=== PATIENT | male | born 1985 | race Caucasian/White ===

== ENCOUNTER 2019-06-30 07:30 | Inpatient (IN) ==
[2019-06-30] MEDS ORDERED: Acetaminophen IV 1,000 MG/100 ML INFUS..BTL IVPB ONE (07:57)
[2019-06-30] MEDS ORDERED: Famotidine 20 MG/2 ML VIAL IVP ONE (07:57)
[2019-06-30] MEDS ORDERED: Gabapentin 300 MG CAPSULE PO ONE (07:57)
[2019-06-30] MEDS ORDERED: Dexamethasone 4 MG/ML VIAL ONE (08:06)
[2019-06-30] MEDS ORDERED: *HR* Succinylcholine 200 MG/10 ML VIAL IVP ONE ×2 (08:06→09:11)
[2019-06-30] MEDS ORDERED: Lidocaine -MPF 2% 2 ML VIAL ONE (08:06)
[2019-06-30] MEDS ORDERED: Ondansetron 4 MG/2 ML VIAL ONE (08:06)
[2019-06-30] MEDS ORDERED: Lidocaine HCL 4 ML Topical Solution (Laryng-O-Jet Kit Sterile Pak) TP ONE (08:06)
[2019-06-30] MEDS ORDERED: *HR* Midazolam HCl 2 MG/2 ML VIAL ONE (08:08)
[2019-06-30] MEDS ORDERED: *HR* FentaNYL (PF) 100 MCG/2 ML VIAL ONE ×3 (08:08→11:13)
[2019-06-30] MEDS ORDERED: *HR* Propofol 200 MG/20 ML VIAL IVP ONE (08:09)
[2019-06-30] MEDS ORDERED: Clindamycin 900 MG/50 ML 900 MG/50 ML IV.SOLN IVPB ONE (08:27)
[2019-06-30] MEDS ORDERED: Albuterol 2.5 MG/3 ML NEBULIZER IH PRN ×2 (08:27→11:29)
[2019-06-30] MEDS ORDERED: Ringers Solution, Lactated 1,000 ML IVC SCH (08:30)
[2019-06-30] MEDS ORDERED: Lidocaine Jelly 6ml 1 APPL/6 ML JEL.PF.APP ONE (09:07)
[2019-06-30] MEDS ORDERED: Ketorolac 30 MG/ML VIAL ONE (09:07)
[2019-06-30] MEDS ORDERED: *HR* OxyCODONE Immed Rel 5 MG TABLET PO PRN (11:29)
[2019-06-30] MEDS ORDERED: Ondansetron 4 MG/2 ML VIAL IVP ONE (11:29)
[2019-06-30] MEDS ORDERED: *HR* Promethazine 25 MG/ML VIAL IVP PRN (11:29)
[2019-06-30] MEDS: *HR* HYDROmorphone 2 MG/ML SYRINGE IVP PRN ×4 (11:35→11:50)
[2019-06-30] MEDS ORDERED: Naloxone 0.4 MG/ML INJ IVP PRN (12:52)
[2019-06-30] MEDS: Morphine PCA 30 MG/ 30 ML 30 ML PCA.VIAL IVC SCH (14:23)
[2019-06-30] MEDS: 0.9 % Sodium Chloride 1,000 ML IVC SCH (14:33)
[2019-06-30] MEDS: Ketorolac 15 MG/ML VIAL IVP SCH ×3 (14:35→23:55)
[2019-06-30] MEDS: *HR* Heparin 5,000 UNIT/ML VIAL SQ SCH ×2 (14:35→21:53)
[2019-06-30] MEDS: Ondansetron 4 MG/2 ML VIAL IVP PRN ×2 (15:15→21:57)
[2019-06-30] MEDS: Ipratropium/Albuterol Neb 3 ML IH SCH ×4 (16:17→23:07)
[2019-07-01] MEDS: Ipratropium/Albuterol Neb 3 ML IH SCH ×6 (03:18→23:48)
[2019-07-01 04:44] LABS: Hematocrit 35.5 % (37.5-50.1); Hemoglobin 10.8 g/dL (12.9-16.9); Mean Corpuscular HGB Conc 30.4 g/dL (31.6-35.5); Mean Corpuscular Hemoglobin 24.7 pg (28.0-33.3); Mean Corpuscular Volume 81.1 fL (83.0-100.0); Mean Platelet Volume 9.5 fL (9.4-12.4); Platelet Count 293 K/mcL (140-400); Red Blood Count 4.38 M/mcL (4.19-5.50); Red Cell Distribution Width 26.5 % (11.5-14.5)
[2019-07-01 04:51] LABS: White Blood Count 11.4 K/mcL (4.3-11.1)
[2019-07-01 05:00] LABS: % Iron Saturation 15 % (20-55); BUN/Creatinine Ratio 12 (6-26); Blood Urea Nitrogen 9 mg/dL (6-20); Calcium 8.5 mg/dL (8.6-10.3); Carbon Dioxide 25 mEq/L (23-29); Chloride 105 mEq/L (98-107); Glucose 123 mg/dL (70-105); Iron 50 mcg/dL (65-175); Magnesium 1.7 mg/dL (1.6-2.6); Osmolality,Calculated 284 (280-300); Potassium 3.1 mEq/L (3.5-5.1); Sodium 137 mEq/L (136-145); Transferrin 235 mg/dL (203-362); eGFR For African Americans > 60 (> 60); eGFR For Non-African Americans > 60 (> 60)
[2019-07-01] MEDS: 0.9 % Sodium Chloride 1,000 ML IVC SCH ×3 (05:19→21:51)
[2019-07-01] MEDS: *HR* Heparin 5,000 UNIT/ML VIAL SQ SCH ×3 (05:20→22:47)
[2019-07-01] MEDS: Ketorolac 15 MG/ML VIAL IVP SCH ×4 (05:20→22:47)
[2019-07-01] MEDS: Pantoprazole 40 MG VIAL IVP SCH (08:25)
[2019-07-01] MEDS: Morphine PCA 30 MG/ 30 ML 30 ML PCA.VIAL IVC SCH ×2 (09:08→21:19)
[2019-07-01] MEDS ORDERED: Potassium Chloride 40 MEQ, Lidocaine 1% 2 ML in 0.9 % Sodium Chloride 500 ML IVPB ONE (11:44)
[2019-07-01] MEDS ORDERED: Iron Sucrose Complex 400 MG in 0.9 % Sodium Chloride 250 ML IVPB ONE (11:44)
[2019-07-02] MEDS: Ipratropium/Albuterol Neb 3 ML IH SCH ×6 (04:08→23:29)
[2019-07-02 04:26] LABS: BUN/Creatinine Ratio 15 (6-26); Blood Urea Nitrogen 10 mg/dL (6-20); Calcium 8.5 mg/dL (8.6-10.3); Carbon Dioxide 24 mEq/L (23-29); Chloride 107 mEq/L (98-107); Glucose 92 mg/dL (70-105); Osmolality,Calculated 283 (280-300); Potassium 4.3 mEq/L (3.5-5.1); Sodium 137 mEq/L (136-145); eGFR For African Americans > 60 (> 60); eGFR For Non-African Americans > 60 (> 60)
[2019-07-02] MEDS: *HR* Heparin 5,000 UNIT/ML VIAL SQ SCH ×3 (06:03→21:43)
[2019-07-02] MEDS: Ketorolac 15 MG/ML VIAL IVP SCH ×3 (06:03→17:55)
[2019-07-02] MEDS: Pantoprazole 40 MG VIAL IVP SCH (08:58)
[2019-07-02] MEDS: Morphine PCA 30 MG/ 30 ML 30 ML PCA.VIAL IVC SCH ×2 (10:56→22:25)
[2019-07-02] MEDS: 0.9 % Sodium Chloride 1,000 ML IVC SCH (11:32)
[2019-07-03] MEDS: Ketorolac 15 MG/ML VIAL IVP SCH ×4 (00:29→17:30)
[2019-07-03] MEDS: 0.9 % Sodium Chloride 1,000 ML IVC SCH ×2 (00:30→13:54)
[2019-07-03] MEDS: Ipratropium/Albuterol Neb 3 ML IH SCH ×6 (03:28→23:58)
[2019-07-03] MEDS: *HR* Heparin 5,000 UNIT/ML VIAL SQ SCH ×3 (05:26→21:56)
[2019-07-03 06:01] LABS: BUN/Creatinine Ratio 21 (6-26); Blood Urea Nitrogen 13 mg/dL (6-20); Calcium 9.1 mg/dL (8.6-10.3); Carbon Dioxide 24 mEq/L (23-29); Chloride 104 mEq/L (98-107); Glucose 84 mg/dL (70-105); Osmolality,Calculated 283 (280-300); Potassium 4.2 mEq/L (3.5-5.1); Sodium 137 mEq/L (136-145); eGFR For African Americans > 60 (> 60); eGFR For Non-African Americans > 60 (> 60)
[2019-07-03] MEDS: Pantoprazole 40 MG VIAL IVP SCH (08:32)
[2019-07-03] MEDS: Morphine PCA 30 MG/ 30 ML 30 ML PCA.VIAL IVC SCH (10:09)
[2019-07-04] MEDS: Ketorolac 15 MG/ML VIAL IVP SCH ×5 (00:12→23:44)
[2019-07-04] MEDS: Morphine PCA 30 MG/ 30 ML 30 ML PCA.VIAL IVC SCH (00:30)
[2019-07-04] MEDS: 0.9 % Sodium Chloride 1,000 ML IVC SCH (02:48)
[2019-07-04] MEDS: Ipratropium/Albuterol Neb 3 ML IH SCH ×5 (04:05→20:13)
[2019-07-04] MEDS: *HR* Heparin 5,000 UNIT/ML VIAL SQ SCH ×3 (05:23→20:28)
[2019-07-04] MEDS: Pantoprazole 40 MG VIAL IVP SCH (07:36)
[2019-07-04] MEDS: Gabapentin 300 MG CAPSULE PO SCH ×2 (14:54→20:28)
[2019-07-04] MEDS: *HR* HYDROcodone/Acet 5/325 mg TABLET PO PRN (14:54)
[2019-07-05] MEDS: Ipratropium/Albuterol Neb 3 ML IH SCH ×4 (00:16→11:08)
[2019-07-05] MEDS: Ketorolac 15 MG/ML VIAL IVP SCH ×2 (05:12→11:49)
[2019-07-05] MEDS: *HR* Heparin 5,000 UNIT/ML VIAL SQ SCH ×2 (05:15→14:25)
[2019-07-05] MEDS: Gabapentin 300 MG CAPSULE PO SCH ×2 (07:46→07:59)
[2019-07-05] MEDS: *HR* HYDROcodone/Acet 5/325 mg TABLET PO PRN (07:59)
[2019-07-05] MEDS ORDERED: Ondansetron 4 MG/2 ML VIAL ONE (12:54)
[2019-07-05] MEDS ORDERED: *HR* FentaNYL (PF) 100 MCG/2 ML VIAL ONE ×3 (12:54→13:48)
[2019-07-05] MEDS ORDERED: *HR* Propofol 200 MG/20 ML VIAL IVP ONE (12:54)
[2019-07-05] MEDS ORDERED: Dexamethasone 4 MG/ML VIAL ONE (12:54)
[2019-07-05] MEDS ORDERED: *HR* Midazolam HCl 2 MG/2 ML VIAL ONE (12:54)
[2019-07-05] MEDS ORDERED: Lidocaine -MPF 2% 2 ML VIAL ONE (12:54)
[2019-07-05] MEDS ORDERED: Lidocaine Jelly 6ml 1 APPL/6 ML JEL.PF.APP ONE (12:59)
[2019-07-05] MEDS ORDERED: Clindamycin 900 MG/50 ML 900 MG/50 ML IV.SOLN IVPB ONE ×2 (13:09→13:21)
[2019-07-05] MEDS ORDERED: Ondansetron 4 MG/2 ML VIAL IVP ONE ×2 (13:20→14:50)
[2019-07-05] MEDS ORDERED: *HR* HYDROmorphone (PF) 1 MG/ML SYRINGE IVP PRN ×2 (13:20→14:50)
[2019-07-05] MEDS ORDERED: *HR* Promethazine 25 MG/ML VIAL IVP PRN ×2 (13:20→14:50)
[2019-07-05] MEDS ORDERED: *HR* OxyCODONE Immed Rel 5 MG TABLET PO PRN ×2 (13:20→14:50)
[2019-07-05] MEDS ORDERED: *HR* HYDROMORPHONE 2 MG/ML VIAL ONE (13:59)
[2019-07-05] MEDS ORDERED: Naloxone 0.4 MG/ML INJ IVP PRN (14:50)
[2019-07-05] MEDS ORDERED: Ondansetron 4 MG/2 ML VIAL IVP PRN (14:50)
[2019-07-05] MEDS ORDERED: *HR* HYDROcodone/Acet 5/325 mg TABLET PO PRN (14:50)
[2019-07-05] MEDS ORDERED: Gabapentin 300 MG CAPSULE PO SCH (15:00)
[2019-07-05 15:29] VITALS: BP 125/80
[2019-07-05] MEDS ORDERED: Ipratropium/Albuterol Neb 3 ML IH SCH (16:00)
[2019-07-05] MEDS ORDERED: *HR* Heparin 5,000 UNIT/ML VIAL SQ SCH (22:00)
== END 2019-07-05 17:37 | disposition home or self-care (01) | DRG 328 ==
LOC: SAMDAY 07:30 → ICNU 12:30 → 2NNU 07-02 17:41
PROVIDERS: ADMIT Thoracic Surgery (Cardiothoracic Vascular Surgery); ATTEND Thoracic Surgery (Cardiothoracic Vascular Surgery)